=== PATIENT | male | born 1965 | race Caucasian/White ===

== ENCOUNTER 2019-02-15 12:53 | Emergency (ER) | payer BC ==
[2019-02-15 13:01] VITALS: BP 114/75; PULSE 95; TEMP 98; BMI 32.5
[2019-02-15] MEDS ORDERED: KETOROLAC TROMETHAMINE 60 MG/2 ML VIAL IM ONE (13:23)
[2019-02-15] MEDS ORDERED: KETOROLAC TROMETHAMINE 60 MG/2 ML VIAL ONE (13:26)
--- NOTE | 2019-02-15 13:31 | PDOC ---
History of Present Illness - General Chief Complaint: Chronic pain Stated Complaint: LWR BACK PAIN Time Seen by Provider: 02/15/19 13:13 - History of Present Illness Initial Comments: 02/15/19 13:27 53-year-old male with lower back pain and left leg radicular symptoms 2 weeks no loss of bowel or bladder function or systemic symptoms. Seen at an urgent care treated with Motrin and Flexeril without much relief. Past History - Past Medical History Allergies/Adverse Reactions: Allergies Allergy/AdvReac Type Severity Reaction Status Date / Time naproxen Allergy Verified 02/15/19 13:02 Home Medications: Ambulatory Orders Methylprednisolone [Medrol Dose Osvaldo] 4 mg PO ASDIR #21 tablet 02/15/19 COPD: No - Suicide/Smoking/Psychosocial Hx Smoking History: Unknown if ever smoked Have you smoked in the past 12 months: No Information on smoking cessation initiated: No Hx Alcohol Use: No Drug/Substance Use Hx: No Review of Systems - Review of Systems Constitutional: No: Fever Musculoskeletal: Yes: Back Pain *Physical Exam - Vital Signs Last Vital Signs Temp Pulse Resp BP Pulse Ox 98.0 F 95 H 16 114/75 98 02/15/19 12:59 02/15/19 12:59 02/15/19 12:59 02/15/19 12:59 02/15/19 12:59 - Physical Exam Comments: 02/15/19 13:28 Lumbar spine skin color and temperature are normal. Range of motion is limited. No midline tenderness. Moderate right and left paralumbar musculature spasm and tenderness 5 out of 5 strength bilateral lower extremities without gross sensorimotor deficits thighs and calves are soft and nontender positive straight leg raise test on the left neurovascularly intact. Medical Decision Making - Medical Decision Making 02/15/19 13:28 Medical ALLERGY to Naprosyn however the ALLERGY is not anaphylactic one he states Naprosyn causes heart palpitations in the past however he does tolerate Motrin Advil and other anti-inflammatories without issue. I will DCD anti- inflammatories home use start a Medrol Dosepak he can continue with Flexeril and Tylenol and I will have him follow-up with neurosurgery. Hopefully breakthroughs pain with an injection of Toradol in the emergency room *DC/Admit/Observation/Transfer Diagnosis at time of Disposition: Lumbar radiculopathy - Discharge Dispostion Disposition: HOME Condition at time of disposition: Stable Decision to Admit order: No - Prescriptions Prescriptions: Methylprednisolone [Medrol Dose Osvaldo] 4 mg PO ASDIR #21 tablet - Referrals Referrals: Randy Edmond MD [Staff Physician] - - Patient Instructions Printed Discharge Instructions: Lumbar Radiculopathy, DI for Lumbar Radiculopathy Additional Instructions: To me the Flexeril and Tylenol at home as directed. Start the Medrol Dosepak today and used that medication as discussed. Return to the emergency room for worsening symptoms and follow-up with neurosurgery in 1-2 days without fail for further evaluation and treatment options. Did not use any anti-inflammatory such as Advil Motrin or ibuprofen while at home while on the Medrol Dosepak. - Post Discharge Activity
== END 2019-02-15 13:52 | disposition home or self-care (01) ==
LOC: JERFT 12:53
PROC: 3E0233Z Introduction of Anti-inflammatory into Muscle, Percutaneous Approach (ICD-10-PCS; principal; 2019-02-15)
DX: M54.16 Radiculopathy, lumbar region (principal); G89.29 Other chronic pain
CPT/HCPCS: 99282-25